=== PATIENT | male | born 1960 | race Two or more races ===

== ENCOUNTER 2019-05-16 23:33 | Emergency (ER) | payer OTHER ==
[~2019-05-16] VITALS: Ht 167.6 cm; Wt 68.0 kg
[~2019-05-16 23:33] MED LIST: METFORMIN HYDRO25 GM; ZOCOR5 MG
[2019-05-17] MEDS ORDERED: TRAZODONE HCL50 MG (00:12)
== END 2019-05-17 05:26 ==
LOC: ER 23:33 → CPU-OBS 23:44 → ER 05-17 05:26
DX: R07.89 Other chest pain (principal)
CPT/HCPCS: G0378; G0379; 93005